=== PATIENT | female | born 1960 | race Caucasian/White ===

== ENCOUNTER 2019-06-17 06:23 | Day surgery (SDC) | payer BC, OTHER ==
[~2019-06-17] VITALS: Ht 167.6 cm; Wt 60.5 kg
[~2019-06-17 06:23] MED LIST: ACET-1600 PO; ALPH300T2 PO; ASPI1TAB51 PO; BUPR200T PO; D-mannose PO; ESCI20TA PO; FELO5TAB4 PO; FLUT9.9S NS; IBUP200C8 PO; LOVA40TA2 PO; SIME125C67 PO; ZOLE5INF INJ
[2019-06-17] MEDS ORDERED: BUPIVACAINE/PF 0.5% ONE (06:44)
[2019-06-17] MEDS ORDERED: EPINEPHRINE 1 MG/ML, 1ML ONE (06:44)
[2019-06-17] MEDS ORDERED: LACTATED RINGERS 1,000 ML IV SCH (06:54)
[2019-06-17 07:09] VITALS: BP 145/81
[2019-06-17] MEDS ORDERED: FENTANYL PF 250 MCG/5ML ONE (07:39)
[2019-06-17] MEDS ORDERED: MIDAZOLAM 1 MG/ML, 2ML ONE (07:39)
[2019-06-17] MEDS ORDERED: KETOROLAC 30 MG/1 ML IV PRN (09:00)
[2019-06-17] MEDS ORDERED: PROMETHAZINE 25 MG/ML, 1ML IV PRN (09:00)
[2019-06-17] MEDS ORDERED: ONDANSETRON 2MG/ML, 2ML IVPush PRN (09:00)
[2019-06-17] MEDS ORDERED: OXYcodone 5 MG/5 ML ORAL.SOL UDC PO PRN (09:00)
[2019-06-17] MEDS ORDERED: hydrALAzine 20 MG/ML, 1ML IV PRN (09:00)
[2019-06-17] MEDS ORDERED: HYDROmorphone 1 MG/ML, 1ML INJ IV PRN (09:00)
[2019-06-17] MEDS ORDERED: ALBUTEROL SULFATE 2.5 MG/3 ML NPPB PRN (09:00)
[2019-06-17] MEDS ORDERED: LABETALOL 5MG/ML, 20ML IV PRN (09:00)
[2019-06-17] MEDS ORDERED: METOCLOPRAMIDE 5 MG/ML, 2ML IV PRN (09:00)
[2019-06-17] MEDS ORDERED: MEPERIDINE/PF 25MG/0.5ML IVPush PRN (09:00)
[2019-06-17] MEDS ORDERED: FENTANYL PF 100 MCG/2ML IV PRN (09:00)
[2019-06-17] MEDS ORDERED: DIAZEPAM 5 MG/ML, 2ML IV PRN ×2 (09:00)
[2019-06-17] MEDS ORDERED: CEFAZOLIN 1,000 MG ONE (15:18)
[2019-06-17] MEDS ORDERED: SUCCINYLCHOLINE 20 MG/ML, 10ML ONE (15:18)
[2019-06-17] MEDS ORDERED: DEXAMETHASONE 4 MG/ML, 1ML ONE (15:18)
[2019-06-17] MEDS ORDERED: ROCURONIUM 10MG/ML,5ML ONE (15:18)
[2019-06-17] MEDS ORDERED: ONDANSETRON 2MG/ML, 2ML ONE (15:18)
[2019-06-17] MEDS ORDERED: PROPOFOL 10 MG/ML, 20ML ONE (15:18)
== END 2019-06-17 11:45 | disposition home or self-care (01) ==
LOC: OUT 06:23
PROVIDERS: ATTEND Podiatrist Foot & Ankle Surgery
DX: M21.612 Bunion of left foot (principal); M20.42 Other hammer toe(s) (acquired), left foot; M20.41 Other hammer toe(s) (acquired), right foot; I10 Essential (primary) hypertension; Z79.899 Other long term (current) drug therapy; Z88.2 Allergy status to sulfonamides; Z91.041 Radiographic dye allergy status
CPT/HCPCS: 28297; 28313; 64447; 73620; 93005; C1713; C1762; J0330; J0690; J1100; J2250; J2405; J2704; J3010; J7120; 76000; J0171